=== PATIENT | male | born 1980 | race Caucasian/White ===

== ENCOUNTER → 2022-07-07 | Outpatient (CLI) | payer OTHER ==
[~2022-07-07] MED LIST: ALDACTONE 25MG25 M1 PO; CATAPRES 0.1MG0.1 MG PO; COLACE 100100 MG/CAP PO; NORVASC 10MG10 MG PO; ROXICODONE 55 MG/TAB PO; TOPROL XL100 MG PO
== END ==
LOC: COL.RAD 13:18
DX: N28.89 Other specified disorders of kidney and ureter (principal); Z85.528 Personal history of other malignant neoplasm of kidney
CPT/HCPCS: Q9967

== ENCOUNTER → 2023-01-06 | Outpatient (CLI) | payer OTHER | LOC: COL.RAD 07:25 | DX: K80.20 Calculus of gallbladder without cholecystitis without obstruction (principal); K82.8 Other specified diseases of gallbladder; K76.0 Fatty (change of) liver, not elsewhere classified ==

== ENCOUNTER 2023-01-21 11:37 | Day surgery (SDC) | payer OTHER ==
[~2023-01-21] VITALS: Ht 182.9 cm; Wt 105.8 kg
[2023-01-21 12:09] VITALS: BP 122/74; PULSE 71; TEMP 97.7
[2023-01-21] MEDS ORDERED: PRILOSEC 20MG20 MG PO (12:12)
[2023-01-21] MEDS ORDERED: BENICAR HCT 251 TAB PO (12:12)
[2023-01-21] MEDS ORDERED: ZYRTEC 10MG10 MG PO (12:13)
[2023-01-21] MEDS ORDERED: MOTRIN 600600 MG/TAB PO (12:58)
[2023-01-21] MEDS ORDERED: NORCO 325 MG-51 TAB PO (12:58)
[2023-01-21] MEDS ORDERED: AMOXICILLIN 8751 TAB PO (17:02)
[2023-01-21 17:45] VITALS: BP 131/72; PULSE 73; TEMP 97.1
[2023-01-21 18:00] VITALS: BP 128/76; PULSE 77
[2023-01-21 18:15] VITALS: BP 134/78; PULSE 78
[2023-01-21 18:30] VITALS: BP 131/72; PULSE 70
--- NOTE | 2023-01-21 20:31 | NUR ---
[id number]: PT TO RECOVERY BAY 6 FOM PACU S/P ROBOTIC LAP JV WITH I[facility] FAMILY IN ROOM UPON ARRIVAL. A&O, NAD, DENIES COMPLAINT. 5 TROCAR SITES CLOSED WITH GLUE -CDI. HAS BEEN TOLERATING SIPS&CHIPS PLACED ON MONITOR, VSS ON RA RECEIVED REPORT AND ASSUMED CARE OF PT FROM GABY LANDRY PROVIDED FLUIDS/FOOD, TOLERATING WELL PT HAS REMAINED A&O, NAD, VSS ON RA, TOLERATING PO, IS WITHOUT SIGNIFICANT COMPLAINT, WITH STEADY GAIT THRU OUT STAY IV D/C'D. D/C INSTRUCTIONS, ANY FOLLOW UP REVIEWED AND HANDED TO PT. ALL QUESTIONS AND CONCERNS ADDRESSED TO PT SATISFACTION. TAKEN TO EXIT VIA W/C WITH ALL BELONGINGS AND PAPERWORK IN HAND, ASSISTED INTO PASSENGER SEAT OF POV. FAMILY TO DRIVE HOME.
== END 2023-01-21 18:55 | disposition home or self-care (01) ==
LOC: SDCO 11:37
DX: K80.10 Calculus of gallbladder with chronic cholecystitis without obstruction (principal); F17.210 Nicotine dependence, cigarettes, uncomplicated
CPT/HCPCS: J2704; J3010; J7120; Q9967